=== PATIENT | female | born 1975 | race Caucasian/White ===

== ENCOUNTER 2020-02-09 10:44 | Outpatient (CLI) | payer OTHER, SELFPAY ==
--- NOTE | 2020-02-09 10:51 | US_ITS ---
WS: [id number] Pelvic ultrasound, 02/09/2020 Clinical Data: IRREGULAR MENSTRUAL CYCLE Comparison: None. Findings: The uterus measures 10.8 cm x 8.3 cm. There is mixed echotexture density measuring 4.73 x 5.43 x 4.89 cm within the uterus which is suggestive of a leiomyoma. The endometrium is 0.8 cm. No intrauterine is seen. The cervical length is 4.4 cm. The left ovary measures 3.5 cm x 3.8 cm x 1.8 cm with a simple cyst measuring 1.05 x 1.23 x 1.36 cm. The right ovary measures 2.5 cm x 1.0 cm x 1.9 cm with no cysts or masses. US/US pelvic complete* [id number] Impression: 1. Mixed echotexture density in uterus probably a leiomyoma. 2. Simple left ovarian cyst.
== END 2020-02-09 10:45 | disposition home or self-care (01) ==
LOC: RAD 10:50
PROVIDERS: PCP Nurse Practitioner Family; Visit Provider Nurse Practitioner Family
DX: N92.6 Irregular menstruation, unspecified (principal); N83.292 Other ovarian cyst, left side
CPT/HCPCS: 76856

== ENCOUNTER 2020-02-12 09:53 | Emergency (ER) | payer OTHER, SELFPAY ==
[2020-02-12 10:06] VITALS: BP 139/78; PULSE 91; RESP 18; TEMP 36.4; O2SAT 100; BMI 34.7
[2020-02-12 11:03] LABS: Basophils % 0.4 %; Eosinophils % 0.8 %; Hematocrit 34.1 % (37.0-47.0); Lymphocytes # 1.2 10^3/uL (0.8-4.8); Lymphocytes % 22.6 %; Mean Corpuscular HGB Conc 29.3 g/dL (30.0-36.0); Mean Corpuscular Volume 78.4 fL (81-99); Mean Platelet Volume 10.2 fL (7.4-10.4); Monocytes # 0.4 10^3/uL (0.2-0.9); Monocytes % 7.5 %; Neutrophils # 3.5 10^3/uL (1.8-7.7); Neutrophils % 67.2 %; Nucleated Red Blood Cells % 0 %; Platelet Count 323 10^3/cmm (130-400); Red Blood Count 4.35 10^6/uL (4.1-5.3); Red Cell Distribution Width 25.1 % (12.1-15.1); White Blood Count 5.2 10^3/uL (4.0-10.0)
--- NOTE | 2020-02-12 11:05 | ED_ITS ---
Entered by Maria Varela, acting as scribe for Omaira Guajardo [place], [facility] [place] 12, 2020 09:53 HPI - Female Genitourinary General: Chief complaint: Vaginal Bleeding Stated complaint: ABD PAIN Time Seen by Provider: 02/12/20 11:05 Source: patient Mode of arrival: ambulatory Limitations: no limitations History of Present Illness: HPI Narrative: 44 yo Female presents to ED with complaint of vaginal bleeding. Pt states that she had an ultrasound on Wednesday because she has been having vaginal bleeding. Pt states that her PCP told her that the ultrasound showed a fibroid and she was told to come into the ED. Pt states that her PCP sent her to the ED because she didn't know how long it would take for her to get in with an MOTOR VEHICLE FIELD REPRESENTATIVE. Pt states that she has been fatigued and dizzy. Pt states that she has had a few episode of the bleeding but this one started on Wednesday. Pt states that her periods have been very irregular. MD elicited complaint: vaginal bleeding Onset (ago): day(s) Location of symptoms: vaginal Severity scale (1-10): 3 Quality of pain: cramping Vaginal discharge: none Vaginal bleeding: heavy Urinary symptoms: Difficulty Urinating (difficulty finishing urination) Exacerbating factors: none Relieving factors: none Associated symptoms: Reports abdominal pain and weakness; Deny short of breath, fevers/chills, headache(s), nausea or vaginal discharge Treatment prior to arrival: none Patient : No Review of Systems General: Reports: 10 or more systems reviewed and unremarkable except in HPI and below Const: Denies: fever, chills or body aches Eyes: Denies: change in vision or blurry vision ENMT: Denies: throat pain, enlarged tonsils, painful swallowing, hoarseness, mouth pain or swelling of lips/tongue Card: Reports: pre-syncope Resp: Denies: shortness of breath, productive cough or non-productive cough GI: Reports: abdominal pain and cramping; Denies: nausea or vomiting : Reports: vaginal bleeding; Denies: vaginal discharge Musc: Denies: neck pain, back pain or extremity swelling Skin/Breast: Denies: rash, itching or redness Neuro: Denies: headache, numbness in extremities or weakness in extremities Endo: Denies: excessive urination, excessive thirst or tired all the time PFSH ED PFSH: Social History Smoking and tobacco status: never smoked Physical Exam Const: COMMON NORMALS: no apparent distress, average body habitus, oriented x3, no limitations, healthy appearing, alert and well nourished HENMT: COMMON NORMALS: normocephalic, head/scalp atraumatic and moist oral mucous membranes HEAD & SCALP: normocephalic and atraumatic Eye: COMMON NORMALS: PERRL, EOMs intact bilaterally, conjunctivae normal and no scleral icterus CONJUNCTIVA: Yes conjunctivae normal PUPIL: Yes PERRL Neck/C-Spine: COMMON NORMALS: full ROM, supple, no meningeal signs, no JVD and no carotid bruits Chest: COMMONS NORMALS: inspection of chest normal and palpation of chest normal Resp: COMMON NORMALS: normal respiratory effort, no retractions, no use of accessory muscles, clear to auscultation bilaterally and percussion normal AUSCULTATION: clear to auscultation bilaterally PERCUSSION: percussion normal Cardio: COMMON NORMALS: no JVD, regular rate, regular rhythm, S1 normal heart sound, S2 normal heart sound, no gallops, no clicks, no murmurs, no rub and peripheral pulses 2+ throughout RATE: regular rate RHYTHM: regular rhythm HEART SOUNDS: S1 normal and S2 normal PERIPHERAL PULSES: pulses 2+ throughout GI: COMMON NORMALS: normal to inspection, nondistended, normoactive bowel sounds, soft to palpation, non-tender, no hepatosplenomegaly, no masses and no bruits PALPATION: Yes soft and Yes no hepatosplenomegaly : COMMON NORMALS: Yes no CVA tenderness BLADDER/KIDNEY EXAM: Yes no CVA tenderness Back/Pelvis: COMMON NORMALS: no CVA tenderness Extremity: COMMON NORMALS: normal to inspection, full ROM, normal capillary refill, no calf tenderness and no pedal edema Neuro: COMMON NORMALS: oriented x3 SENSORIUM/ORIENTATION: Yes alert MENINGEAL SIGNS: Yes no meningeal signs Skin: COMMON NORMALS: no rashes or lesions noted, no wounds, skin turgor normal, no jaundice, no petechiae and no mottling GENERAL SKIN EXAM: no rashes or lesions noted and turgor normal Course Vital Signs: Vital signs: Vital Signs Temperature 97.6 F 02/12/20 10:06 Pulse Rate 84 02/12/20 13:17 Respiratory Rate 16 02/12/20 13:17 Blood Pressure 124/81 02/12/20 13:17 Pulse Oximetry 100 02/12/20 13:17 MDM - Female MDM Narrative: Medical decision making narrative: 44-year-old female patient who has had vaginal bleeding for a few weeks. She had an US done about 3 days ago which showed a fibroid. Her primary care provider was concerned that she may not be able to see a blower room attendant quickly so she sent that to the emergency department to see if she could get into see a blower room attendant quicker. She however has an appointment with a blower room attendant for tomorrow. In the emergency department her hemoglobin showed anemia but it was not significant enough for transfusion. Ultrasound was not repeated. Since she has an appointment with a blower room attendant tomorrow she is discharged home with no new orders. Medical Records: Attestation: I reviewed the patient's medical records. Lab Data: Attestation: I reviewed the patient's lab results. Labs: Lab Results 02/12/20 02/12/20 02/12/20 Range/Units 10:49 10:49 10:49 WBC 5.2 (4.0-10.0) 10^3/ uL RBC 4.35 (4.1-5.3) 10^6/u L Hgb 10.0 L (11.5-15.3) g/dL Hct 34.1 L (37.0-47.0) % MCV 78.4 L (81-99) fL MCH 23.0 L (28.0-34.0) pg MCHC 29.3 L (30.0-36.0) g/dL RDW 25.1 H (12.1-15.1) % Plt Count 323 (130-400) 10^3/c mm MPV 10.2 (7.4-10.4) fL Neut % (Auto) 67.2 % Lymph % (Auto) 22.6 % [place] % (Auto) 7.5 % Eos % (Auto) 0.8 % Baso % (Auto) 0.4 % Neut # (Auto) 3.5 (1.8-7.7) 10^3/u L Lymph # (Auto) 1.2 (0.8-4.8) 10^3/u L [place] # (Auto) 0.4 (0.2-0.9) 10^3/u L Eos # (Auto) 0.0 (0.0-0.8) 10^3/u L Baso # (Auto) 0.0 (0.0-0.1) 10^3/u L Nucleated RBC % (a uto) 0 % Nucleated RBCs # 0.0 /100WBC Sodium 142 (136-145) mmol/L Potassium 4.3 (3.5-5.1) mmol/L Chloride 107 (98-107) mmol/L Carbon Dioxide 27 (22-29) mmol/L Anion Gap 12.3 (5-19) BUN 5 L (6-20) mg/dL Creatinine 0.6 (0.5-0.9) mg/dL GFR Calculation 107.6 (90-130) mL/min Glucose 105 (65-115) mg/dL Calculated Osmolal ity 290 (285-295) mOsm/k g Calcium 9.3 (8.5-10.5) mg/dL Total Bilirubin 0.2 (0.15-1.2) mg/dL AST 24 (0-32) U/L ALT 20 (0-33) U/L Alkaline Phosphata se 77 (35-105) IU/L Total Protein 7.0 (6.6-8.7) g/dL Albumin 4.2 (3.5-5.2) g/dL Globulin 2.8 (1.3-4.6) g/dL HCG, Qual Negative (Negative) Discharge Plan Discharge Patient Disposition: Home, Self-Care Clinical Impression: Menometrorrhagia, Uterine fibroid, Anemia Condition: Stable Prescriptions: Continued ferrous sulfate 325 mg (65 mg iron) tablet 325 mg PO TID RF: 0 Discharge Orders: Discharge Order (Routine); Ordered 02/12/20 Ordered By: Omaira Guajardo Referrals: Kristina Ralph FNP [Primary Care Provider] - 7-10 days Patient Instructions: Uterine Fibroids (ED), Menorrhagia (ED) Activity Restrictions/Additional Instructions: Return for any new or worsening symptoms. Follow-up with your blower room attendant tomorrow as scheduled and with your primary care provider within 1 week. Drink plenty of fluids to keep well-hydrated. Interventions: ED Discharge Assessment Last Done: 02/12/20 13:17 Discharge Date/Time: 02/12/20 13:17 Coding Level of Care Code ED Licensed Nursing Assistant for Chg Fwd Exam Comprehensive The documentation recorded by the [employer] Carmen, accurately reflects the service I personally performed and the decisions made by , Omaira Guajardo MD, [facility] [place] 12, 2020 09:53
[2020-02-12 11:14] LABS: HCG, Serum Qual Negative (Negative)
[2020-02-12] MEDS: sodium chloride 0.9% 1,000 ML 999 ML IV (11:16)
[2020-02-12 11:24] LABS: Alanine Aminotransferase 20 U/L (0-33); Albumin Level 4.2 g/dL (3.5-5.2); Alkaline Phosphatase 77 IU/L (35-105); Anion Gap 12.3 (5-19); Aspartate Amino Transferase 24 U/L (0-32); Blood Urea Nitrogen 5 mg/dL (6-20); Calcium 9.3 mg/dL (8.5-10.5); Carbon Dioxide 27 mmol/L (22-29); Chloride 107 mmol/L (98-107); Creatinine Clr Calc Pharmacy 119.3565; Globulin 2.8 g/dL (1.3-4.6); Glomerular Filtration Rate 107.6 mL/min (90-130); Glucose 105 mg/dL (65-115); Osmolality Calculated 290 mOsm/kg (285-295); Potassium 4.3 mmol/L (3.5-5.1); Sodium 142 mmol/L (136-145); Total Bilirubin 0.2 mg/dL (0.15-1.2)
[2020-02-12 11:34] VITALS: BP 116/79; BP 117/79; BP 121/76; PULSE 82; PULSE 85; PULSE 86
[2020-02-12 13:17] VITALS: BP 124/81; PULSE 84; RESP 16; O2SAT 100
== END 2020-02-12 13:17 | disposition home or self-care (01) ==
PROVIDERS: Emergency Medicine; Physician Assistant; Emergency Provider Family Medicine; PCP Nurse Practitioner Family
DX: N92.1 Excessive and frequent menstruation with irregular cycle (principal); D25.9 Leiomyoma of uterus, unspecified; D64.9 Anemia, unspecified
CPT/HCPCS: 12345; 36415; 80053; 84703; 85025; 96360; 99283; J7030

== ENCOUNTER → 2020-02-13 09:52 | Outpatient (BNVA) | payer OTHER, SELFPAY | PROVIDERS: PCP Nurse Practitioner Family; Referring Provider Nurse Practitioner Family; Visit Provider Obstetrics & Gynecology Female Pelvic Medicine and Reconstructive Surgery | DX: Z12.4 Encounter for screening for malignant neoplasm of cervix (principal); R32 Unspecified urinary incontinence; N93.9 Abnormal uterine and vaginal bleeding, unspecified; Z12.31 Encounter for screening mammogram for malignant neoplasm of breast; D64.89 Other specified anemias; D25.9 Leiomyoma of uterus, unspecified | CPT/HCPCS: 81000; 88175 ==

== ENCOUNTER → 2020-02-14 07:29 | Outpatient (BNVA) | payer OTHER, SELFPAY | PROVIDERS: PCP Nurse Practitioner Family; Visit Provider Obstetrics & Gynecology Female Pelvic Medicine and Reconstructive Surgery | DX: N93.9 Abnormal uterine and vaginal bleeding, unspecified (principal) | CPT/HCPCS: 88305 ==